=== PATIENT | female | born 1955 | race Caucasian/White ===

== ENCOUNTER → 2019-08-11 | Outpatient (CLI) | payer OTHER ==
[~2019-08-11] MED LIST: ARIMIDEX PO; ASPIR 8181 MG PO; DIOVAN HCT 3201 EAC1 PO; EFFEXOR XR75 MG PO; ELIQUIS2.5 MG PO; FEMARA2.5 MG PO; IBUPROFEN 800800 M1 PO; LOVASTATIN 20 M20 MG PO; MELATONIN3 MG PO; MOBIC15 MG PO; MULTIVITAMINS PO; NEURONTIN600 MG PO; NORCO 5-325 TA1 EAC1 PO; ROXICODONE5 M2 PO; VITAMIN D350000 UNIT PO
== END ==
LOC: M.MRI 17:48
DX: S83.241A Other tear of medial meniscus, current injury, right knee, initial encounter (principal); S83.242A Other tear of medial meniscus, current injury, left knee, initial encounter; M71.22 Synovial cyst of popliteal space [Baker], left knee; M17.0 Bilateral primary osteoarthritis of knee; X58.XXXA Exposure to other specified factors, initial encounter; Y93.89 Activity, other specified; Y92.89 Other specified places as the place of occurrence of the external cause; Y99.8 Other external cause status

== ENCOUNTER 2019-09-01 09:23 | Observation (INO) | payer OTHER ==
[2019-08-21 09:28] LABS: ABSOLUTE BASOPHILS 0.1 thou/uL (0.0-0.2); ABSOLUTE EOSINOPHILS 0.1 thou/uL (0.0-0.7); ABSOLUTE LYMPHOCYTES 1.9 thou/uL (0.8-5.3); ABSOLUTE MONOCYTES 0.4 thou/uL (0.0-1.2); ABSOLUTE NEUTROPHILS 4.1 thou/uL (1.6-8.1); BASOPHILS 0.8 %; EOSINOPHILS 1.9 %; HEMATOCRIT 39.2 % (37.0-47.0); HEMOGLOBIN 13.6 gm/dL (12.0-15.0); LYMPHOCYTES 28.8 %; MCH 28.8 pg (26.0-34.0); MCHC 34.6 g/dL (28.0-37.0); MCV 83.2 fL (80.0-100.0); MONOCYTES 6.2 %; MPV 6.7 fl. (7.2-11.1); NUCLEATED RBCS 0 /100WBC; PLATELET COUNT* 286 thou/uL (150-400); POLYS 62.3 %; RBC 4.72 mil/uL (4.20-5.00); RDW-CV 13.8 % (10.5-14.5); WBC 6.6 thou/uL (4.0-11.0)
[2019-08-21 09:35] LABS: APTT 25.1 Seconds (25.0-31.3); PROTIME 10.3 Seconds (9.20-11.50)
[2019-08-21 09:40] LABS: ALBUMIN 3.7 g/dL (3.4-5.0); CALCIUM 9.2 mg/dL (8.5-10.1); CREATININE 0.9 mg/dL (0.6-1.3); POTASSIUM 3.9 mmol/L (3.5-5.1); TOTAL BILIRUBIN 0.4 mg/dL (<0.1-1.0); TOTAL PROTEIN 7.3 g/dL (6.4-8.2)
[2019-08-21 11:05] LABS: ESR (SEDRATE) 19 mm/hr (0-30)
--- NOTE | 2019-08-21 14:33 | EKG ---
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 08/21/19 1432 [id number] Ken Forbes MD, FACC /EPI
[2019-08-22 02:06] LABS: GLYCOHEMOGLOBIN (HGB A1C) 5.7 % (4.8-5.6)
[~2019-09-01] VITALS: Ht 170.2 cm; Wt 90.7 kg
[~2019-09-01 09:23] MED LIST changes: -ELIQUIS2.5 MG PO; -NORCO 5-325 TA1 EAC1 PO; -ROXICODONE5 M2 PO
[2019-09-01] MEDS ORDERED: NORCO 5-325 TA1 EAC1 PO (14:06)
[2019-09-01 14:15] VITALS: BP 152/81
[2019-09-01 22:48] VITALS: BP 128/66
[2019-09-02] VITALS: BP 138/73
[2019-09-02 03:17] LABS: HEMATOCRIT 36.1 % (37.0-47.0); HEMOGLOBIN 12.3 gm/dL (12.0-15.0)
[2019-09-02 05:00] VITALS: BP 125/69
[2019-09-02] MEDS ORDERED: ROXICODONE5 M2 PO (12:30)
[2019-09-02] MEDS ORDERED: ELIQUIS2.5 MG PO (12:30)
[2019-09-02 13:16] VITALS: BP 125/69
[2019-09-02 13:42] VITALS: BP 125/69
[2019-09-02 17:02] VITALS: BP 125/69
--- NOTE | 2019-09-18 09:24 | OP ---
[address] [address] OPERATIVE REPORT Name: JUANIS ROSAS Room: [address] Bonnie Krishna#: [id number] Admission: 09/01/19 Attend Phys: Shayna Carvalho Discharge: 09/02/19 Date of : 57 Report #: [id number] THIS REPORT FOR: //name// CC: Neil Roper DICTATED BY: Dane Perez DO DATE OF SERVICE: 09/01/2019 PREOPERATIVE DIAGNOSIS: Advanced degenerative joint disease, right knee. POSTOPERATIVE DIAGNOSIS: Advanced degenerative joint disease, right knee. SURGERY PERFORMED: Right total knee arthroplasty. SURGEON: David Loya D.O. DIRECTOR OF BROADCAST: RORO Amin. A mental health assistant was required for this case for positioning, assistance with exposure, retracting and closure. SECOND PORCELAIN FINISHER: Dane Perez D.O. ANESTHESIA: General. ESTIMATED BLOOD LOSS: 250 mL. TOURNIQUET: None. COMPLICATIONS: None. DISPOSITION: Stable to the PACU. IMPLANTS: [employer], right total knee system with [employer] custom cutting blocks was utilized with the following components: 1. Size 6 posterior stabilized femoral component. 2. Size 4 tibial baseplate. 3. A 9-mm posterior stabilized polyethylene insert. 4. A 32-mm oval patellar component. INDICATIONS FOR PROCEDURE: The patient is a pleasant 64-year-old female who has been followed in the outpatient orthopedic clinic with longstanding right knee pain. Clinical exam and radiographic evidence has shown severe degenerative joint disease of the right knee. She has tried and failed conservative care including attempted weight loss, activity modifications, home exercise program, corticosteroid injections, and NSAIDs. Despite conservative care, she has [facility] [address] [place] [address] OPERATIVE REPORT Name: ALISONJUANIS Lily Room: [address] Bonnie Krishna#: [id number] Admission: 09/01/19 Attend Phys: Shayna Carvalho Discharge: 09/02/19 Date of : 57 Report #: [id number] continued to be symptomatic to the point where it is affecting her quality of life. We discussed further treatment options including right total knee arthroplasty. Risks, benefits, complications, and alternatives were discussed with the patient in detail. She wished to proceed. DESCRIPTION OF PROCEDURE: The patient was transferred to the operating suite and placed on the operating table in supine position. She was given the benefit of general anesthesia. A well-padded pneumatic tourniquet was placed on the right upper thigh. The pneumatic tourniquet was not inflated during the duration of the case. The right lower extremity was then prepped and draped in the usual sterile fashion. A timeout was taken to confirm the appropriate patient identification, operative site, and procedure to be performed. All in the room were in agreement with the timeout. Procedure began by performing a longitudinal midline incision at the anterior aspect of the right knee. Dissection was carried down sharply to the level of the extensor mechanism. A fresh scalpel blade was then utilized to perform a medial parapatellar arthrotomy. The knee was flexed. Patella was everted. The [employer] cutting block for the distal femur was put into position. Alignment was verified to be appropriate and the cutting block was pinned into position. The distal femoral cut was then performed through the cutting block. The 5-in-1 cutting block was then malleted into position utilizing the pin holes created through the distal femoral cutting block. Rotation was verified and confirmed to be appropriate for the 5-in-1 cutting block. The 5-in-1 cutting block was then pinned into position. The anterior, posterior and chamfer cuts were then performed through the 5-in-1 cutting block. Excess bone was removed. Attention was then addressed to the tibia where the proximal tibial [employer] cutting block was positioned appropriately. The appropriate position was verified and confirmed. The cutting block was then pinned into place. The proximal tibial cut was then performed through the cutting block. This again was verified to be appropriate cut in appropriate position prior to performing the bony cuts. The cutting block was then removed. Menisci and anterior and posterior cruciate ligaments were then removed using electrocautery. The trial tibial baseplate was then pinned into position in appropriate rotation. The trial femur was then malleted into position. The box cut was reamed and punched through the trial femoral component. A size 9-mm posterior stabilized trial was put into position. The knee was taken through range of motion. It was found to be well balanced to varus and valgus in 20 degrees of flexion and 90 degrees of flexion. There was an appropriate anterior drawer test. The knee was very stable. The patella was then everted and was reamed using a cylindrical reamer. This was measured to be a 32 mm. The patella was then drilled and the trial component was placed. The knee was again taken through range of motion and the patella was noted to track well. Trial components were removed. The tibia was drilled and punched through the [address] [address] OPERATIVE REPORT Name: JUANIS ROSAS Room: [address] Bonnie CannonLeah#: [id number] Admission: 09/01/19 Attend Phys: Shayna Carvalho Discharge: 09/02/19 Date of : 57 Report #: [id number] tibial tray. The knee was thoroughly irrigated. Orthopedic cocktail was injected. Cement was mixed and applied to the cut surfaces of the bone and the back surfaces of the implants. Final implants were malleted in position and held into position while the cement hardened. The knee was taken through range of motion with a 9-mm spacer and was found again to be appropriate in full extension, mid flexion, and full flexion. The patella again was noted to track well. The knee was once again irrigated. The capsule was closed using combination of #1 Vicryl followed by #1 running Stratafix. Subcutaneous tissue was closed using 2-0 Monocryl. Final skin closure was performed using a running subcuticular 3-0 Stratafix followed by skin glue. Sterile dressing was applied. The patient was transferred to PACU in stable condition. ATTESTATION: Dr. Loya was present and scrubbed in through the entirety of the procedure. <ELECTRONICALLY SIGNED> By: David Loya DO 09/18/19 0924 [id number] 1944Robershady Loya DO /nt
== END 2019-09-02 17:04 | disposition home or self-care (01) ==
LOC: EDSTATUS 09:23 → M.TBA 09:24 → M.SUR 13:28 → M.TBA 13:50 → M.ORTHSURG 17:32
PROVIDERS: Orthopaedic Surgery; ADMIT Internal Medicine
DX: M17.11 Unilateral primary osteoarthritis, right knee (principal); E78.5 Hyperlipidemia, unspecified; G43.909 Migraine, unspecified, not intractable, without status migrainosus; K21.9 Gastro-esophageal reflux disease without esophagitis; F41.9 Anxiety disorder, unspecified; F32.9 Major depressive disorder, single episode, unspecified; J45.909 Unspecified asthma, uncomplicated; Z79.82 Long term (current) use of aspirin; Z79.899 Other long term (current) drug therapy; Z23 Encounter for immunization